=== PATIENT | female | born 1970 | race Caucasian/White ===

== ENCOUNTER 2016-12-27 16:18 | Emergency (ER) | payer BC, OTHER ==
--- NOTE | 2016-12-27 17:02 | Emergency Department Record ---
History of Present Illness - General Chief Complaint: Back Pain/Injury Stated Complaint: BACK PAIN Time Seen by Provider: 12/27/16 16:56 Source: Patient Mode of Arrival: Ambulatory Limitations: No limitations - History of Present Illness Initial Comments: 46 yo female presents with back and flank pain. She was recent scene in the [facility] and diagnosed with UTI and HTN. Over the last few days she has had persistent flank pain. No nausea, vomiting or diarrhea. She did not blood on the UA when diagnosed with the UTI. No history of renal stones. She started a new blood pressure medication recently was started as well. She did follow up with her PCP Dr sAhley CORONEL Complaint: Back pain, Other (Urinary Tract infection) Onset/Timin -: Days(s) Similar Symptoms Previously: No Place: Home Quality: Aching Improves With: None Worsens With: Movement Associated Symptoms: Denies other symptoms Treatments Prior to Arrival: Prescription analgesics Treatment Prior to Arrival Comment:: [place] 1400 - Related Data Home Medications Medication Instructions Recorded Confirmed Last Taken Hydrocodone/Acetaminophen [Vicodin 1 tab PO Q8H PRN 03/29/15 12/27/16 12/26/16 7.5mg/300mg] Ibuprofen [Motrin 200Mg] 200 mg PO Q8H PRN 03/29/15 12/27/16 12/26/16 Alprazolam [Xanax] 0.25 mg PO Q8H 06/30/16 12/27/16 12/26/16 Atorvastatin Calcium [Lipitor] 10 mg PO DAILY 06/30/16 12/27/16 12/26/16 Cholecalciferol (Vitamin D3) 1,500 unit PO WEEKLY 06/30/16 12/27/16 12/26/16 [Vitamin D3] Levothyroxine Sodium [Synthroid] 50 mcg PO DAILY 06/30/16 12/27/16 12/26/16 Orphenadrine Citrate [Norflex] 100 mg PO Q12H PRN 08/16/16 12/27/16 12/26/16 Duloxetine HCl [Cymbalta] 60 mg PO QD cap 12/18/16 12/27/16 12/26/16 Lisinopril [Zestril] 10 mg PO DAILY 12/27/16 12/27/16 12/26/16 Allergies Allergy/AdvReac Type Severity Reaction Status Date / Time No Known Drug Allergies Allergy Verified 12/27/16 17:13 Travel Screening - Travel/Exposure Within Last 30 Days Have you traveled within the last 30 days?: No - Travel/Exposure Within Last Year Have you traveled outside the [place] in the last year?: No - Additonal Travel Details Have you been exposed to anyone with a communicable illness?: No - Travel Symptoms Symptom Screening: None Review of Systems Constitutional: Denies: Chills, Fever, Weakness Eyes: Denies: Eye discharge, Eye pain, Photophobia, Vision change ENT: Denies: Congestion, Throat pain Respiratory: Denies: Cough, Dyspnea Cardiovascular: Denies: Chest pain, Palpitations, Syncope Endocrine: Denies: Fatigue Gastrointestinal: Denies: Abdominal pain, Diarrhea, Nausea, Vomiting Genitourinary: Reports: As per HPI, Dysuria, Frequency, Hematuria Musculoskeletal: Reports: Back pain, Myalgia. Denies: Arthralgia, Joint swelling, Neck pain Skin: Denies: Bruising, Change in color, Rash Neurological: Denies: Headache, Vertigo, Weakness Psychiatric: Denies: Anxiety Hematological/Lymphatic: Denies: Blood Clots, Easy bleeding, Easy bruising, Swollen glands Past Medical History - SOCIAL HISTORY Smoking Status: Never smoker Alcohol Use: None Drug Use: None - RESPIRATORY Hx Respiratory Disorders: No - CARDIOVASCULAR Hx Cardio Disorders: No - NEURO Hx Neuro Disorders: No - GI Hx GI Disorders: Yes Hx Abdominal Pain: Yes - Hx Genitourinary Disorders: No - ENDOCRINE Hx Endocrine Disorders: Yes Hx Diabetes: No Hx Thyroid Disease: Yes - MUSCULOSKELETAL Hx Musculoskeletal Disorders: Yes Hx Arthritis: Yes Comment:: left knee - PSYCH Hx Psych Problems: Yes Hx Anxiety: Yes - HEMATOLOGY/ONCOLOGY Hx Hematology/Oncology Disorders: No Family Medical History Any Significant Family History?: No Hx Cancer: Mother Hx Heart Disease: Mother Physical Exam - General General Appearance: Alert, Oriented x3, Cooperative, No acute distress Limitations: No limitations - Head Head exam: Normal inspection - Eye Eye exam: Normal appearance, PERRL. negative: Conjunctival injection, Scleral icterus - ENT ENT exam: Normal exam Ear exam: Normal external inspection Nasal Exam: Normal inspection Mouth exam: Normal external inspection - Neck Neck exam: Normal inspection, Full ROM. negative: Tenderness - Respiratory Respiratory exam: Normal lung sounds bilaterally. negative: Respiratory distress - Cardiovascular Cardiovascular Exam: Regular rate, Normal rhythm, Normal heart sounds Peripheral Pulses: 2+: Radial (R), Radial (L) - GI/Abdominal GI/Abdominal exam: Soft. negative: Distended, Guarding, Hypoactive bowel sounds , Rebound, Tenderness - Rectal Rectal exam: Deferred - exam: Deferred - Extremities Extremities exam: Normal inspection, Full ROM, Normal capillary refill. negative: Pedal edema, Tenderness - Back Back exam: Reports: Normal inspection, CVA tenderness (R), CVA tenderness (L), Full ROM, Muscle spasm, Tenderness (very mild tenderness, discomfort seems to occur with movement). Denies: Rash noted, Vertebral tenderness - Neurological Neurological exam: Alert, Normal gait, Oriented X3, Reflexes normal - Psychiatric Psychiatric exam: Normal affect, Normal mood. negative: Agitated, Anxious - Skin Skin exam: Dry, Intact, Normal color, Warm Course Vital Signs 12/27/16 16:49 Temperature 98.0 F Pulse Rate 89 Respiratory 16 Rate Blood Pressure 108/87 Pulse Ox 95 - Reevaluation(s) Reevaluation #1: The labs were reviewed No acute changes on the CBC or CMP She has normal renal function 12/27/16 18:08 Medical Decision Making - Lab Data Result diagrams: 12/27/16 17:06 12/27/16 17:06 Disposition Disposition: Discharge Clinical Impression: Flank pain Disposition: Home, Self-Care Condition: (1) Good Instructions: Low Back Strain (ED) Additional Instructions: Call your doctor to recheck this week Return if you have fever, vomiting, or any new concerns You will need to follow up all your tests with your doctor as well You will need to review the CT scan and follow the adrena nodules with your doctor Forms: Patient Portal Access Time of Disposition: 18:11
[2016-12-27 17:25] LABS: URINE APPEARANCE CLEAR; URINE BILIRUBIN NEGATIVE (NEGATIVE); URINE BLOOD SMALL (NEGATIVE); URINE COLOR YELLOW; URINE GLUCOSE (UA) NEGATIVE (NEGATIVE); URINE KETONE NEGATIVE (NEGATIVE); URINE LEUKOCYTE ESTERASE NEGATIVE (NEGATIVE); URINE NITRITE NEGATIVE (NEGATIVE); URINE PROTEIN NEGATIVE (NEGATIVE); URINE UROBILINOGEN 0.2 E.U./dL (0.20 - 1.00)
[2016-12-27 17:27] LABS: BASO % 0.2 % (0-6); GRAN % 53.4 % (47-80); HEMATOCRIT 44.8 % (35.0-47.0); HEMOGLOBIN 15.6 gm/dl (11.6-16.0); LYMPH % 38.2 % (16-45); MEAN CELL VOLUME 88.4 fl (81-97); MEAN CORPUSCULAR HEMOGLOBIN 30.8 pg (27-33); MEAN CORPUSCULAR HGB CONC 34.8 g/dl (32-36); MEAN PLATELET VOLUME 10.5 fl (7.4-10.4); MONO % 6.2 % (0-9); PLATELET COUNT 313 K/uL (130-400); RED BLOOD COUNT 5.07 M/uL (3.80-5.40); RED CELL DISTRIBUTION WIDTH 14.2 % (11.5-14.5); WHITE BLOOD COUNT W/O DIFF 10.3 K/uL (4.2-12.2)
[2016-12-27 17:32] LABS: ANION GAP 12.6 (7-16); BLOOD UREA NITROGEN 8 mg/dL (7-17); CARBON DIOXIDE 24.4 mmol/L (22-30); CREATININE 0.6 mg/dL (0.52-1.04); EST GLOMERULAR FILTRATION RATE > 60 ml/min; GLUCOSE,RANDOM 125 mg/dL (70-110)
[2016-12-27 17:38] LABS: HCG,QUALITATIVE URINE NEGATIVE (NEGATIVE)
[2016-12-27 17:45] LABS: URINE BACTERIA FEW; URINE EPITHELIAL CELLS 0 - 2 (FEW); URINE RBC 0 - 2 (NONE SEEN); URINE WBC 0 - 2 (0-2/hpf)
== END 2016-12-27 18:25 | disposition home or self-care (01) ==
LOC: ER 16:18
DX: R10.9 Unspecified abdominal pain (principal); M54.5 Low back pain; R31.29 Other microscopic hematuria; I10 Essential (primary) hypertension
CPT/HCPCS: 74176; 80048; 81001; 81025; 85025; 99283; 99284

== ENCOUNTER 2017-02-17 23:01 | Emergency (ER) | payer BC ==
[2017-02-17] MEDS ORDERED: ONDANSETRON HCL IV 4 MG/2 ML VIAL IVP ONE (23:26)
--- NOTE | 2017-02-17 23:41 | Emergency Department Record ---
History of Present Illness - General Chief complaint: Vomiting Stated complaint: NAUSEA/VOMITING Time Seen by Provider: 02/17/17 23:26 Source: Patient Mode of Arrival: Ambulatory Limitations: No limitations - History of Present Illness Initial comments: 46 yo female presents to ED with a CC of nausea, vomiting, loose stools, diahoresis, and shortness of breath symptoms for the past 3 days. Patient denies fevers, chills, or cough symptoms, denies previous heart or lung problems , and reports only a recent diagnosis of HTN. Patient denies abdominal pain symptoms as well. MD complaint: Nausea, Vomiting Onset/Timin -: Days(s) Associated Abdominal Pain: No Radiation: None Severity: Moderate Consistency: Intermittent Improves with: None Worsens with: None Associated Symptoms: Shortness of breath - Related Data Home Medications Medication Instructions Recorded Confirmed Last Taken Hydrocodone/Acetaminophen [Vicodin 1 tab PO Q8H PRN 03/29/15 02/17/17 12/26/16 7.5mg/300mg] Ibuprofen 200 mg Tablet [Motrin 200 mg PO Q8H PRN 03/29/15 02/17/17 02/17/17 200Mg] Alprazolam [Xanax] 0.25 mg PO Q8H 06/30/16 02/17/17 12/26/16 Atorvastatin Calcium [Lipitor] 10 mg PO DAILY 06/30/16 02/17/17 02/17/17 Cholecalciferol (Vitamin D3) 1,500 unit PO WEEKLY 06/30/16 02/17/17 02/17/17 [Vitamin D3] Levothyroxine Sodium [Synthroid] 50 mcg PO DAILY 06/30/16 02/17/17 02/17/17 Orphenadrine Citrate [Norflex] 100 mg PO Q12H PRN 08/16/16 02/17/17 12/26/16 Duloxetine HCl [Cymbalta] 60 mg PO QD cap 12/18/16 02/17/17 02/17/17 Lisinopril [Zestril] 10 mg PO DAILY 12/27/16 02/17/17 02/17/17 Lisinopril/Hydrochlorothiazide 1 tab PO DAILY 02/17/17 02/17/17 02/17/17 [Lisinopril-Hctz 10-12.5 mg Tab] Previous Rx's Medication Instructions Recorded Ondansetron [Zofran Odt] 4 mg PO Q6H PRN #15 tab.rapdis 02/18/17 Allergies Allergy/AdvReac Type Severity Reaction Status Date / Time No Known Drug Allergies Allergy Verified 12/27/16 17:13 Review of Systems Constitutional: Denies: Chills, Fever, Malaise, Night sweats Eyes: Denies: Eye discharge, Eye pain ENT: Denies: Congestion, Ear pain, Epistaxis Respiratory: Reports: Dyspnea. Denies: Cough Cardiovascular: Denies: Chest pain, Dyspnea on exertion Endocrine: Denies: Fatigue, Heat or cold intolerance Gastrointestinal: Reports: Nausea, Vomiting. Denies: Abdominal pain Genitourinary: Denies: Incontinence, Retention Musculoskeletal: Denies: Arthralgia, Back pain, Gout, Joint swelling Skin: Denies: Bruising, Change in color Neurological: Denies: Abnormal gait, Headache, Seizure Psychiatric: Denies: Anxiety Hematological/Lymphatic: Denies: Anemia, Blood Clots Past Medical History - SOCIAL HISTORY Smoking Status: Never smoker Drug Use: None - RESPIRATORY Hx Respiratory Disorders: No - CARDIOVASCULAR Hx Cardio Disorders: No - NEURO Hx Neuro Disorders: No - GI Hx GI Disorders: Yes Hx Abdominal Pain: Yes - Hx Genitourinary Disorders: No - ENDOCRINE Hx Endocrine Disorders: Yes Hx Diabetes: No Hx Thyroid Disease: Yes - MUSCULOSKELETAL Hx Musculoskeletal Disorders: Yes Hx Arthritis: Yes Comment:: left knee - PSYCH Hx Psych Problems: Yes Hx Anxiety: Yes - HEMATOLOGY/ONCOLOGY Hx Hematology/Oncology Disorders: No Family Medical History Hx Cancer: Mother Hx Heart Disease: Mother Physical Exam - General General Appearance: Alert, Oriented x3, Cooperative, Mild distress, Other ( Patient appears diaphoretic on examination) Limitations: No limitations - Head Head exam: Atraumatic, Normocephalic, Normal inspection Head exam detail: negative: Abrasion, Contusion, Whalen's sign, General tenderness, Hematoma, Laceration - Eye Eye exam: Normal appearance. negative: Conjunctival injection, Periorbital swelling, Periorbital tenderness, Scleral icterus - ENT Ear exam: negative: Auricular hematoma, Auricular trauma Nasal Exam: negative: Active bleeding, Discharge, Dried blood Mouth exam: negative: Drooling, Laceration, Muffled voice, Tongue elevation - Neck Neck exam: Normal inspection. negative: Meningismus, Tenderness - Respiratory Respiratory exam: Normal lung sounds bilaterally. negative: Rales, Respiratory distress, Rhonchi, Stridor - Cardiovascular Cardiovascular Exam: Regular rate, Normal rhythm, Normal heart sounds - GI/Abdominal GI/Abdominal exam: Soft. negative: Rebound, Rigid, Tenderness - Rectal Rectal exam: Deferred - exam: Deferred - Extremities Extremities exam: Normal inspection. negative: Calf tenderness, Pedal edema, Tenderness - Back Back exam: Denies: CVA tenderness (R), CVA tenderness (L) - Neurological Neurological exam: Alert, Normal gait, Oriented X3 - Psychiatric Psychiatric exam: Normal affect, Normal mood - Skin Skin exam: Normal color. negative: Abrasion Type of lesion: negative: abrasion Course Vital Signs 02/17/17 23:17 Temperature 97.8 F Pulse Rate [ 104 H Pulse Ox Probe] Respiratory 20 Rate Blood Pressure 139/98 [Left Arm] Pulse Ox 98 - Reevaluation(s) Reevaluation #1: 02/17/17 23:36 EKG: NSR 83 Normal axis, normal intervals No acute ST-T wave changes Reevaluation #2: 02/18/17 00:35 Labs reviewed, WBC 14.4, Potassium 2.9 (replaced orally). Labs are otherwise grossly unremarkable for an acute process. Reevaluation #3: 02/18/17 01:21 CXR: No acute process Patient reassessed and updated on all results, reports that she is feeling much better. D-Dimer is negative. Patient's potassium replaced in the ED. As the patient reports that she is feeling much better, patient appears stable for discharge at this time with antiemetics for his symptoms. Medical Decision Making - Lab Data Result diagrams: 02/17/17 23:45 02/17/17 23:45 Disposition Disposition: Discharge Clinical Impression: Nausea vomiting and diarrhea Dyspnea Qualifiers: Dyspnea type: unspecified Qualified Code(s): R06.00 - Dyspnea, unspecified Disposition: Home, Self-Care Condition: (2) Stable Instructions: Acute Nausea and Vomiting (ED) Additional Instructions: Return to ED if your symptoms worsen or if you have any concerns. Zofran as directed. Follow-up with your family doctor in 3-5 days as directed. Prescriptions: Ondansetron [Zofran Odt] 4 mg PO Q6H PRN #15 tab.rapdis PRN Reason: Nausea/Vomiting Forms: Patient Portal Access Time of Disposition: 01:24
[2017-02-17 23:53] LABS: BASO % 0.1 % (0-6); EOS % 0.3 % (0-6); GRAN % 54.4 % (47-80); HEMOGLOBIN 16.4 gm/dl (11.6-16.0); LYMPH % 36.9 % (16-45); MEAN CELL VOLUME 85.9 fl (81-97); MEAN CORPUSCULAR HGB CONC 34.9 g/dl (32-36); MEAN PLATELET VOLUME 10.9 fl (7.4-10.4); MONO % 8.3 % (0-9); PLATELET COUNT 401 K/uL (130-400); RED BLOOD COUNT 5.47 M/uL (3.80-5.40); WHITE BLOOD COUNT W/O DIFF 14.4 K/uL (4.2-12.2)
[2017-02-17 23:55] LABS: MEAN CORPUSCULAR HEMOGLOBIN 29.9 pg (27-33)
[2017-02-18 00:06] LABS: ALB/GLOB RATIO 1.6 (1.1-1.8); ALBUMIN 5.3 gm/dL (3.5-5.0); ALKALINE PHOSPHATASE 148 U/L (38-126); ALT/SGPT 62 U/L (9-52); ANION GAP 15.6 (7-16); AST/SGOT 33 U/L (14-36); BILIRUBIN,TOTAL 0.87 mg/dL (0.2-1.3); BLOOD UREA NITROGEN 22 mg/dL (7-17); CARBON DIOXIDE 26.4 mmol/L (22-30); CREATINE PHOSPHOKINASE 105 U/L (30-135); CREATININE 0.9 mg/dL (0.52-1.04); EST GLOMERULAR FILTRATION RATE > 60 ml/min; GLUCOSE,RANDOM 139 mg/dL (70-110); LIPASE 126 U/L (23-300); TOTAL PROTEIN 8.7 gm/dL (6.3-8.2)
[2017-02-18] MEDS: 0.9 % SODIUM CHLORIDE 1000ML 1,000 ML IV SCH (00:07)
[2017-02-18 00:18] LABS: CKMB 1.6 ug/L (0-6)
[2017-02-18 00:22] LABS: TROPONIN I < 0.012 ng/mL (0.00-0.034)
[2017-02-18] MEDS ORDERED: POTASSIUM CHLORIDE 40 MEQ/15ML 40 MEQ/15 ML ML PO ONE (00:27)
[2017-02-18] MEDS: POTASSIUM CHLORIDE 20 MEQ TABLET PO ONE (00:34)
--- NOTE | 2017-02-19 07:50 | RADIOLOGY REPORT ---
EXAM: CHEST, TWO VIEWS HISTORY: DIFFICULTY IN BREATHING. TECHNIQUE: Frontal and lateral views of the chest were performed. FINDINGS: The heart size is normal. Tortuosity of the thoracic aorta. The lung cooper are clear. The osseous structures are normal. IMPRESSION: NEGATIVE CHEST EXAMINATION. JOB NUMBER: [id number] MTDD
== END 2017-02-18 01:37 | disposition home or self-care (01) ==
LOC: ER 23:01
DX: R11.2 Nausea with vomiting, unspecified (principal); R19.7 Diarrhea, unspecified; R06.00 Dyspnea, unspecified; E87.6 Hypokalemia
CPT/HCPCS: 71020; 80053; 82550; 82553; 83690; 84484; 85025; 85379; 93005; 93010; 99284; J7030

== ENCOUNTER 2017-06-28 01:02 | Emergency (ER) | payer BC ==
[2017-06-28] MEDS ORDERED: LIDOCAINE 5% PATCH TOP ONE (01:19)
[2017-06-28] MEDS ORDERED: KETOROLAC 60 MG/2 ML VIAL IM STA (01:19)
--- NOTE | 2017-06-28 01:25 | Emergency Department Record ---
History of Present Illness - General Chief Complaint: Back Pain/Injury Stated Complaint: PAIN IN BACK Time Seen by Provider: 06/28/17 01:19 Source: Patient Mode of Arrival: Ambulatory Limitations: No limitations - History of Present Illness Initial Comments: 47 yo female presents to ED with a CC of left upper back pain symptoms for the past 2-3 days. Patient denies injury, denies urinary symptoms, fevers, chills, or recent illness. Patient reports that she has been taking Norflex and Motrin 800 mg that have not significantly improved her symptoms. Patient reports that her pain symptoms are worst with position changes. Patient denies lower extremity weakness, groin numbness, or urinary retention symptoms. MD Complaint: Back pain Onset/Timin -: Days(s) Severity: Moderate Severity scale (1-10): 8 Consistency: Constant Improves With: None Worsens With: Deep breaths/cough, Movement Context: Unknown Associated Symptoms: Denies other symptoms Treatments Prior to Arrival: Heat therapy, NSAIDS - Related Data Allergies Allergy/AdvReac Type Severity Reaction Status Date / Time No Known Drug Allergies Allergy Verified 06/28/17 01:12 Travel Screening - Travel/Exposure Within Last 30 Days Have you traveled within the last 30 days?: No Review of Systems Constitutional: Denies: Chills, Fever, Malaise, Night sweats Eyes: Denies: Eye discharge, Eye pain ENT: Denies: Congestion, Ear pain, Epistaxis Respiratory: Denies: Cough, Dyspnea Cardiovascular: Denies: Chest pain, Dyspnea on exertion Endocrine: Denies: Fatigue, Heat or cold intolerance Gastrointestinal: Denies: Abdominal pain, Nausea, Vomiting Genitourinary: Denies: Frequency, Hematuria, Incontinence, Retention Musculoskeletal: Reports: Back pain. Denies: Arthralgia, Gout, Joint swelling Skin: Denies: Bruising, Change in color Neurological: Denies: Abnormal gait, Confusion, Headache, Numbness, Tingling Psychiatric: Denies: Anxiety Hematological/Lymphatic: Denies: Anemia, Blood Clots Past Medical History - SOCIAL HISTORY Smoking Status: Never smoker Alcohol Use: Occasional Drug Use: None - RESPIRATORY Hx Respiratory Disorders: No - CARDIOVASCULAR Hx Cardio Disorders: No - NEURO Hx Neuro Disorders: No - GI Hx GI Disorders: Yes Hx Abdominal Pain: Yes - Hx Genitourinary Disorders: No - ENDOCRINE Hx Endocrine Disorders: Yes Hx Diabetes: No Hx Thyroid Disease: Yes - MUSCULOSKELETAL Hx Musculoskeletal Disorders: Yes Hx Arthritis: Yes Comment:: left knee - PSYCH Hx Psych Problems: Yes Hx Anxiety: Yes - HEMATOLOGY/ONCOLOGY Hx Hematology/Oncology Disorders: No Family Medical History Any Significant Family History?: Yes Hx Cancer: Mother Hx Heart Disease: Mother Physical Exam - General General Appearance: Alert, Oriented x3, Cooperative, Mild distress, Other ( ambulates easily with steady gait) Limitations: No limitations - Head Head exam: Atraumatic, Normocephalic, Normal inspection Head exam detail: negative: Abrasion, Contusion, Whalen's sign, General tenderness, Hematoma, Laceration - Eye Eye exam: Normal appearance. negative: Conjunctival injection, Periorbital swelling, Periorbital tenderness, Scleral icterus - ENT Ear exam: negative: Auricular hematoma, Auricular trauma Nasal Exam: negative: Active bleeding, Discharge, Dried blood Mouth exam: negative: Drooling, Laceration, Muffled voice, Tongue elevation - Neck Neck exam: Normal inspection. negative: Meningismus, Tenderness - Respiratory Respiratory exam: Normal lung sounds bilaterally. negative: Respiratory distress, Rhonchi, Stridor, Wheezes - Cardiovascular Cardiovascular Exam: Regular rate, Normal rhythm, Normal heart sounds - GI/Abdominal GI/Abdominal exam: Soft. negative: Distended, Rebound, Rigid, Tenderness - Rectal Rectal exam: Deferred - exam: Deferred - Extremities Extremities exam: Normal inspection. negative: Calf tenderness, Pedal edema, Tenderness - Back Back exam: Reports: Paraspinal tenderness (Posterior left ribs, infrascapular region, no rash present). Denies: CVA tenderness (R), CVA tenderness (L) - Neurological Neurological exam: Alert, Normal gait, Oriented X3 - Psychiatric Psychiatric exam: Normal affect, Normal mood - Skin Skin exam: Normal color. negative: Abrasion Type of lesion: negative: abrasion Course Vital Signs 06/28/17 01:07 Temperature 98.8 F Pulse Rate 97 H Respiratory 16 Rate Blood Pressure 123/60 Pulse Ox 96 - Reevaluation(s) Reevaluation #1: 06/28/17 01:25 Symptoms appear c/w myofascial strain. Patient denies specific traumatic injury , and radiographs are not indicated under the age of 50 years. Will administer Toradol and Lidoderm patch and reassess. Reevaluation #2: 06/28/17 01:45 Patient was reassessed and reports that she is feeling much better, appears stable for discharge at this time. Disposition Disposition: Discharge Clinical Impression: Myofascial pain on left side Disposition: Home, Self-Care Condition: (2) Stable Instructions: Muscle Strain (ED) Additional Instructions: Return to ED if your symptoms worsen or if you have any concerns. Continue your Norflex, Lidoderm, and Motrin 800 mg as directed. Follow-up with your family doctor in 3-5 days as directed. Forms: Patient Portal Access Time of Disposition: 01:46 Quality - Quality Measures Quality Measures: N/A - Blood Pressure Screening Does Patient Have Any of the Following: No Blood Pressure Classification: Pre-Hypertensive BP Reading Systolic Measurement: 123 Diastolic Measurement: 60 Screening for High Blood Pressure: < Pre-Hypertensive BP, F/U Documented > [ [id number]] Pre-Hypertensive Follow-up Interventions: Referral to alternative/primary care provider.
== END 2017-06-28 02:04 | disposition home or self-care (01) ==
LOC: ER 01:02
DX: M54.6 Pain in thoracic spine (principal); M79.1 Myalgia
CPT/HCPCS: 96372; 99283; J1885